=== PATIENT | female | born 1985 | race Caucasian/White ===

== ENCOUNTER 2023-08-20 10:45 | Outpatient (AMB) | payer BC, SELFPAY ==
--- NOTE | 2023-08-20 10:57 | A.OFFVIS_ITS ---
Vital Signs 08/20/23 10:59 Height 5 ft 6 in Weight 159 lb 13.362 oz BMI 25.8 BP 124/72 Blood Pressure Location Rt brachial Position Sitting Pulse 92 Pulse Source Pulse Oximeter Pulse Oximetry (%) 100 Oxygen Delivery Method Room Air Intake Visit Reasons: Joint Pain Intake Note: New patient presents today for consult. C/o joint pain multiple sites, intermittent swelling and hives. Family history of RA and PsA Symptoms started approx 5- years ago, but have gotten worse. [employer] Required: No Accompanied by: Self / Same As Patient Allergies amoxicillin Allergy (Verified 08/20/23 11:02) Unknown Medication List - Last Reconciled 08/20/23 by Leif Hedrick MD No Known Home Meds HPI Comments Details: This is a 38-year-old female who presents for evaluation of diffuse pain. She states that since 2021 she has been having chronic urticaria. She gets lesions all over her body including her face, her hands, her forearms, her chest. Lesions are usually itchy, the last 2-4 hours then they reoccur. She has been evaluated by an senior engineering tech and according to patient allergy testing was negative. Symptoms improved with antihistamines but to not go away. She was also evaluated by [facility] specialist and according to patient, no specific diagnosis was found. She stated that can April of 2023 she had a sore throat and she took azithromycin for strep throat helped her body aches and hives for about a week and a half then all her symptoms came back. She was started on low-dose naltrexone by [facility] January of 2023 which helped her sleep and helped some of her symptoms, she discontinued it 06/2023 and felt that her body aches returned. She has tried a different diet and it did not help her much. She denies any history of DVT/PE. Has any fevers or weight loss. She had 3 pregnancies, 2 children and 1 miscarriage. She denies any history suggestive of Raynaud's. She states that her shoulders crack a lot. She is hyper flexible at her elbows as well. She gets intermittent left knee swelling with activity such as hiking or running. [facility] Medical History (Updated 08/20/23 @ 11:46 by Leif Hedrick MD) Anxiety Fatigue Pain in joint, multiple sites Surgical History History of loop electrical excision procedure (LEEP) Family History Paternal Grandmother Malignant neoplasm of breast (female) Mother Endometriosis Paternal Grandfather Myocardial infarction Stroke Maternal Grandmother No problems noted. Sister No problems noted. Family/Other No problems noted. Social History Alcohol intake: current Alcohol intake frequency: does not drink Patient Tobacco Use Status: Never used Tobacco Current occupational status: employed Current occupation: records manager Female Reproductive History Menstrual Total pregnancies: 3 Number of Living Children: 2 Ab spontaneous: 1 Review of Systems Const Reports fatigue and Reports weakness Musc Reports arthralgias and Reports joint swelling Neuro Reports weakness Psych Reports abnormal sleep pattern and Reports anxiety Endo Reports fatigue Aller/Immun Reports urticaria Physical Exam Vital Signs: Last Vital Signs Pulse 92 08/20/23 10:59 BP 124/72 08/20/23 10:59 Pulse Ox 100 08/20/23 10:59 Oxygen Delivery Method Room Air 08/20/23 10:59 BMI result Body Mass Index 25.8 Const General: cooperative, healthy appearing and comfortable Nutritional Appearance: average body habitus Orientation/consciousness: patient oriented x3 Limitations: no limitations HEENT Head: Yes normocephalic and Yes atraumatic Mouth: moist mucous membranes Resp Effort & Inspection: normal respiratory effort and able to speak in complete sentences Auscultation: clear to auscultation bilaterally Cardio Rate: regular rate Rhythm: regular rhythm Heart sounds: S1 normal heart sound present and S2 normal heart sound present GI Inspection: No distended Palpation (GI): Soft to palpation and nontender Skin General skin exam: no rashes or lesions noted Neuro General: patient oriented x3 Extrem Other: No active synovitis Bilateral hyper flexible thumbs and bilateral for extend the elbows Normal nailfold capillaroscopy Results Reviewed Results Reviewed: Bilateral hip x-rays 06/2023? Impressio:? No acute bone abnormality.? No significant degenerative disease Bilateral shoulder x-rays 06/2023? Impression no acute bone abnormality? Bilateral knee x-rays 06/2023? Impression: no acute bone abnormality Labs 06/2023 KEVIN IFA/CCP negative? Lyme screen negative Hepatitis-C antibody negative CRP normal? ESR 9 Iron panel iron 78 normal? TIBC 260 normal? Iron saturation 30% Ferritin 32 CBC unremarkable Assessment & Plan Assessment & Plan (1) Pain in joint, multiple sites: Code(s): M25.50 - Pain in unspecified joint Category: Medical Plan: This is a 38-year-old female who presents for evaluation of 2 year history of diffuse joint pain as well as chronic urticaria. Different treatments have been tried without much improvement. Will order comprehensive serology to screen for underlying autoimmune rheumatic disease. Follow-up in 6-7 weeks Plan I spent 48 minutes reviewing patient's chart, evaluating patient, ordering diagnostic workup, counseling patient and documenting in the chart Orders: Orders Anti Extractable Nuclear Ag Today M32.9 - Systemic lupus erythematosus, unspecified Complement C3 Today M32.9 - Systemic lupus erythematosus, unspecified Complement C4 Today M32.9 - Systemic lupus erythematosus, unspecified C Reactive Protein Today M32.9 - Systemic lupus erythematosus, unspecified DNA Double Stranded-Crithidia Today M32.9 - Systemic lupus erythematosus, unspecified Erythrocyte Sedimentation Rate Today M32.9 - Systemic lupus erythematosus, unspecified Sjogren's Antibodies Today M32.9 - Systemic lupus erythematosus, unspecified Rheumatoid Factor Today M25.50 - Pain in unspecified joint Comprehensive Met. Panel Today M32.9 - Systemic lupus erythematosus, unspecified Immunofixation Pnl, Serum Today M32.9 - Systemic lupus erythematosus, unspecified Endomysial IgA rflx Titer Today K90.0 - Celiac disease Transglutaminase Ab IgG Today K90.0 - Celiac disease C1q Antibody IgG Today L95.8 - Other vasculitis limited to the skin KEVIN Reflex Titer and Pattern Today M32.9 - Systemic lupus erythematosus, unspecified Anti DNA DS Antibody Today M32.9 - Systemic lupus erythematosus, unspecified Protein Creatinine Ratio, Ur Today M32.9 - Systemic lupus erythematosus, unspecified UA w Microscopic Today M32.9 - Systemic lupus erythematosus, unspecified Complete Blood Count Auto Diff Today M32.9 - Systemic lupus erythematosus, unspecified Hepatitis A,B,C Profile Today Z11.59 - Encounter for screening for other viral diseases Protein Electrophoresis, Serum Today M32.9 - Systemic lupus erythematosus, unspecified Immunoglobulin A Today K90.0 - Celiac disease C1Q Complement Component Today L95.8 - Other vasculitis limited to the skin Coding Level of Care Code New Pt Level 4 (48767) Diagnoses Pain in joint, multiple sites M25.50
[2023-08-20 10:59] VITALS: BP 124/72; PULSE 92; O2SAT 100; BMI 25.8
== END 2023-08-20 11:45 | disposition home or self-care (01) ==
PROVIDERS: PCP Nurse Practitioner Family; Referring Provider Nurse Practitioner Family; Visit Provider Student in an Organized Health Care Education/Training Program
DX: M25.50 Pain in unspecified joint (principal)
CPT/HCPCS: 99204

== ENCOUNTER 2023-08-20 10:45 | Outpatient (REF) | payer BC, SELFPAY ==
[2023-08-20 12:43] LABS: Alanine Aminotransferase 35 U/L (0-31); Albumin Level 4.5 g/dL (3.5-5.0); Alkaline Phosphatase 74 U/L (39-117); Anion Gap 14 (12-20); Aspartate Amino Transferase 19 U/L (5-31); Bilirubin Total 0.4 mg/dL (0.0-1.0); Blood Urea Nitrogen 14 mg/dL (9-16); C Reactive Protein 0.31 mg/dL (< or = 0.50); Calcium 9.2 mg/dL (8.4-10.2); Carbon Dioxide 23 mmol/L (22-29); Chloride 105 mmol/L (96-108); Estimated Glomerular Filt Rate > 60; Glucose Random 85 mg/dL (60-115); Potassium 3.8 mmol/L (3.3-5.1); Sodium 138 mmol/L (135-145); Total Protein 7.2 g/dL (6.5-8.0)
[2023-08-20 12:46] LABS: Rheumatoid Factor < 13.0 IU/mL (<15.0)
[2023-08-20 13:06] LABS: HBS Num1 51.71 mIU/mL (0-7.99); HBc Num1 0.07 S/CO (0.00-0.79); HBsAGNum1 0.27 S/CO (0.00-0.99); Hepatitis A Antibody IgM 0.19 Index (0-0.79); Hepatitis B Core Antibody Nonreactive (Nonreactive); Hepatitis B Surface Antigen Negative (Negative); ~HepC Num1 0.14 S/CO (0.00-0.79); ~Hepatitis A Antibody IgM Nonreactive (Nonreactive); ~Hepatitis B Surface Antibody REACTIVE (Nonreactive); ~Hepatitis C Antibody Nonreactive (Nonreactive)
[2023-08-20 13:15] LABS: Erythrocyte Sedimentation Rate 11 MM/HR (0-20)
[2023-08-20 13:51] LABS: Appearance Urine Cloudy; Color Urine Yellow; Glucose Urine UA Negative (Negative); Leukocyte Esterase Urine Trace (Negative); Nitrite Urine Negative (Negative); PH 5.5 (5.0-9.0); UMIC TRIGGER UA YES; Urine Blood Negative (Negative); Urine Ketones Negative (Negative); Urine Protein Negative (Neg-Trace)
[2023-08-20 14:03] LABS: Bacteria Urine Trace (None Seen); Hyaline Casts Urine 0-2 /LPF (0-2); RBC Urine 0-2 /HPF (0-2); WBC Urine 0-5 /HPF (0-5)
[2023-08-20 15:09] LABS: Creatinine Urine 43.76 mg/dL; Total Protein Urine Random < 7 mg/dL (<12)
[2023-08-21 12:58] LABS: Prot Elec - Albumin 4.4 g/dL (3.8-4.8); Prot Elec - Alpha1 0.3 g/dL (0.2-0.3); Prot Elec - Alpha2 0.6 g/dL (0.5-0.9); Prot Elec - Beta 1 0.4 g/dL (0.4-0.6); Prot Elec - Beta 2 0.4 g/dL (0.2-0.5); Prot Elec - Gamma 0.9 g/dL (0.8-1.7)
[2023-08-21 14:08] LABS: Complement C3 155 mg/dL (83-193); Transglutaminase Ab IgG <1.0 U/mL
[2023-08-21 20:08] LABS: Anti DNA DS Antibody <1 IU/mL; Antibody to SS-A Antigen <1.0 NEG AI (<1.0 NEG); Antibody to SS-B Antigen <1.0 NEG AI (<1.0 NEG); SM/Ribonucleoprotein Ab <1.0 NEG AI (<1.0 NEG); Smith Protein <1.0 NEG AI (<1.0 NEG)
[2023-08-22 21:29] LABS: IgA 145 mg/dL (47-310); IgG 931 mg/dL (600-1640); IgM 83 mg/dL (50-300)
[2023-08-24 07:43] LABS: Anti Nuclear Antibody Screen NEGATIVE (NEGATIVE)
[2023-08-25 14:23] LABS: Endomysial IgA Antibody Negative (Negative)
[2023-08-26 15:13] LABS: DNAds, Crithidia Antibody Negative (Negative)
[2023-08-26 16:03] LABS: C1Q Complement Component 5.8 mg/dL (5.0-8.6)
[2023-08-28 11:18] LABS: C1q Antibody IgG <1 RU/mL (<26)
== END 2023-08-20 10:46 | disposition home or self-care (01) ==
LOC: HO.LAB 10:45
PROVIDERS: PCP Nurse Practitioner Family; Referring Provider Nurse Practitioner Family; Visit Provider Student in an Organized Health Care Education/Training Program
DX: M32.9 Systemic lupus erythematosus, unspecified (principal); M25.50 Pain in unspecified joint; K90.0 Celiac disease; Z11.59 Encounter for screening for other viral diseases; L95.8 Other vasculitis limited to the skin
CPT/HCPCS: 36415; 80053; 81001; 82570; 82784; 83516; 84156; 84165; 85025; 85652; 86038; 86140; 86160; 86225; 86231; 86235; 86255; 86334; 86364; 86431; 86704; 86706; 86709; 86803; 87340